=== PATIENT | female | born 1935 | race Caucasian/White ===

== ENCOUNTER 2020-03-07 15:20 | Inpatient (IN) | payer MEDICARE ==
[2020-03-07] MEDS ORDERED: CORDARONE200 MG/TAB PO (15:34)
[2020-03-07] MEDS ORDERED: LOVASTATIN40 M1 PO (15:34)
[2020-03-07] MEDS ORDERED: TOPCARE ASPIRIN81 M1 PO (15:35)
[2020-03-07] MEDS ORDERED: PROAIR HFA0.09 MG/AC IH (15:35)
[2020-03-07] MEDS ORDERED: DECADRON6 M1 PO (15:37)
[2020-03-07 16:31] VITALS: BP 133/80
[2020-03-08 06:13] VITALS: BP 145/69
[2020-03-08 06:21] LABS: HEMATOCRIT 48.5 % (37.0-47.0); HEMOGLOBIN 14.8 g/dL (12.5-16.0); MEAN CELL VOLUME 80 fl (78-100); MEAN CORPUSCULAR HEMOGLOBIN 25 pg (27-31); MEAN CORPUSCULAR HGB CONC 31 g/dL (33-37); MEAN PLATELET VOLUME 10.3 fl (7.4-10.4); PLATELET COUNT 313 K/mm3 (130-400); RED BLOOD COUNT 6.04 M/mm3 (4.10-5.30)
[2020-03-08 06:24] LABS: ALBUMIN 2.7 g/dL (3.4-4.8); POTASSIUM 5.4 mmol/L (3.5-5.1)
[2020-03-08 06:25] LABS: CALCIUM 8.2 mg/dL (8.3-10.5)
[2020-03-08 06:26] LABS: TOTAL PROTEIN 5.4 g/dL (6.2-8.1)
[2020-03-08 06:28] LABS: TOTAL BILIRUBIN 0.8 mg/dL (0.2-1.2)
[2020-03-08 07:02] LABS: LYMPHOCYTE 5 % (20-51); MONOCYTE 8 % (3-10); NEUTROPHILS 87 % (42-75)
[2020-03-08 07:04] LABS: HYPOCHROMIA 1+; OVALOCYTES 1+; TARGET CELLS 1+
[2020-03-08 09:22] LABS: PH-URINE 7.5 (5.0 - 8.0); URINE APPEARANCE CLEAR; URINE BILIRUBIN NEGATIVE (NEGATIVE); URINE BLOOD NEGATIVE (NEGATIVE); URINE COLOR YELLOW; URINE GLUCOSE NEGATIVE (NEGATIVE); URINE KETONE NEGATIVE (NEGATIVE); URINE LEUKOCYTE ESTERASE NEGATIVE (NEGATIVE); URINE NITRATE NEGATIVE (NEGATIVE); URINE PROTEIN(semi-quant) TRACE mg/dL (NEGATIVE); URINE UROBILINOGEN NORMAL (NORMAL)
[2020-03-08 17:32] VITALS: BP 121/64
[2020-03-09 05:32] VITALS: BP 168/85
[2020-03-09 18:20] VITALS: BP 111/56
[2020-03-10 06:04] VITALS: BP 116/70
[2020-03-10 17:15] VITALS: BP 106/58
[2020-03-11 06:03] VITALS: BP 130/56
[2020-03-11 17:52] VITALS: BP 130/64
[2020-03-12 06:06] VITALS: BP 158/73
[2020-03-12 17:12] VITALS: BP 155/74
[2020-03-13 06:18] VITALS: BP 163/82
[2020-03-13 17:13] VITALS: BP 114/59
[2020-03-14 05:51] VITALS: BP 111/52
[2020-03-14 06:52] LABS: HEMOGLOBIN 12.5 g/dL (12.5-16.0); MEAN CELL VOLUME 84 fl (78-100); MEAN PLATELET VOLUME 10.7 fl (7.4-10.4); PLATELET COUNT 228 K/mm3 (130-400); RED BLOOD COUNT 5.14 M/mm3 (4.10-5.30)
[2020-03-14 07:17] LABS: MEAN CORPUSCULAR HEMOGLOBIN 24 pg (27-31); MEAN CORPUSCULAR HGB CONC 29 g/dL (33-37); RED CELL DISTRIBUTION WIDTH 20.8 % (11.5-14.5)
[2020-03-14 07:18] LABS: HYPOCHROMIA 1+; LYMPHOCYTE 10 % (20-51); MONOCYTE 8 % (3-10); NEUTROPHILS 81 % (42-75); OVALOCYTES 2+; TARGET CELLS 1+
[2020-03-14 07:20] LABS: ALBUMIN 2.5 g/dL (3.4-4.8)
[2020-03-14 07:21] LABS: CALCIUM 8.1 mg/dL (8.3-10.5)
[2020-03-14 07:23] LABS: POTASSIUM 5.8 mmol/L (3.5-5.1)
[2020-03-14 07:24] LABS: TOTAL BILIRUBIN 0.6 mg/dL (0.2-1.2)
[2020-03-14 08:25] LABS: POTASSIUM 5.1 mmol/L (3.5-5.1)
[2020-03-14 08:27] LABS: CALCIUM 8.2 mg/dL (8.3-10.5)
[2020-03-14 17:24] VITALS: BP 131/69
[2020-03-15 06:45] VITALS: BP 131/60
[2020-03-15 17:19] VITALS: BP 122/54
[2020-03-16 06:14] VITALS: BP 150/72
[2020-03-16 17:26] VITALS: BP 107/64
[2020-03-17 06:09] VITALS: BP 128/67
[2020-03-17 16:35] VITALS: BP 120/69
[2020-03-18 06:10] VITALS: BP 134/67
[2020-03-18 16:25] VITALS: BP 131/79
[2020-03-19 06:09] VITALS: BP 155/73
[2020-03-19 17:21] VITALS: BP 145/72
[2020-03-20 06:17] VITALS: BP 158/76
[2020-03-20 16:38] VITALS: BP 131/62
[2020-03-21 06:05] VITALS: BP 135/63
[2020-03-21 07:20] LABS: ALBUMIN 2.5 g/dL (3.4-4.8); EOS # 0.1 (0.04-0.40); EOS % 2.4 % (1.0-5.0); HEMATOCRIT 38.8 % (37.0-47.0); HEMOGLOBIN 11.1 g/dL (12.5-16.0); MEAN CELL VOLUME 84 fl (78-100); MEAN PLATELET VOLUME 9.3 fl (7.4-10.4); MONO # 0.5 (0.20-0.80); NEU # 3.7 (1.40-6.50); PLATELET COUNT 151 K/mm3 (130-400); RED BLOOD COUNT 4.63 M/mm3 (4.10-5.30); WHITE BLOOD COUNT 5.1 K/mm3 (4.8-10.8)
[2020-03-21 07:21] LABS: POTASSIUM 4.5 mmol/L (3.5-5.1)
[2020-03-21 07:22] LABS: CALCIUM 8.1 mg/dL (8.3-10.5)
[2020-03-21 07:23] LABS: TOTAL PROTEIN 5.3 g/dL (6.2-8.1)
[2020-03-21 07:25] LABS: TOTAL BILIRUBIN 0.5 mg/dL (0.2-1.2)
[2020-03-21 07:54] LABS: LYMPH# 0.7 (1.50-4.00); MEAN CORPUSCULAR HEMOGLOBIN 24 pg (27-31); MEAN CORPUSCULAR HGB CONC 29 g/dL (33-37)
[2020-03-21 15:47] VITALS: BP 155/73
[2020-03-22 05:53] VITALS: BP 161/71
[2020-03-22 17:00] VITALS: BP 148/66
[2020-03-23 06:01] VITALS: BP 171/68
[2020-03-23 17:08] VITALS: BP 151/60
[2020-03-24 05:18] VITALS: BP 174/76
[2020-03-24 18:01] VITALS: BP 155/78
[2020-03-25 05:57] VITALS: BP 164/68
[2020-03-25 17:21] VITALS: BP 133/72
[2020-03-26 05:30] VITALS: BP 108/71
[2020-03-26 18:34] VITALS: BP 148/75
[2020-03-27 06:27] VITALS: BP 172/72
[2020-03-27 16:51] VITALS: BP 124/74
[2020-03-28 06:40] VITALS: BP 136/59
[2020-03-28 07:40] LABS: HEMATOCRIT 40.4 % (37.0-47.0); HEMOGLOBIN 11.5 g/dL (12.5-16.0); MEAN CELL VOLUME 85 fl (78-100); MEAN PLATELET VOLUME 9.1 fl (7.4-10.4); PLATELET COUNT 286 K/mm3 (130-400); RED BLOOD COUNT 4.73 M/mm3 (4.10-5.30); WHITE BLOOD COUNT 3.9 K/mm3 (4.8-10.8)
[2020-03-28 07:44] LABS: ALBUMIN 2.7 g/dL (3.4-4.8); POTASSIUM 4.7 mmol/L (3.5-5.1)
[2020-03-28 07:45] LABS: CALCIUM 8.4 mg/dL (8.3-10.5)
[2020-03-28 07:47] LABS: TOTAL PROTEIN 5.5 g/dL (6.2-8.1)
[2020-03-28 07:48] LABS: TOTAL BILIRUBIN 0.4 mg/dL (0.2-1.2)
[2020-03-28 08:00] LABS: MEAN CORPUSCULAR HEMOGLOBIN 24 pg (27-31); MEAN CORPUSCULAR HGB CONC 29 g/dL (33-37); RED CELL DISTRIBUTION WIDTH 21.6 % (11.5-14.5)
[2020-03-28 08:17] LABS: LYMPHOCYTE 23 % (20-51); MICROCYTOSIS 1+; MONOCYTE 7 % (3-10); NEUTROPHILS 63 % (42-75); OVALOCYTES 1+
[2020-03-28 17:20] VITALS: BP 147/65
[2020-03-29 05:41] VITALS: BP 107/69
[2020-03-29 17:37] VITALS: BP 137/73
[2020-03-30 05:55] VITALS: BP 147/64
[2020-03-30 17:07] VITALS: BP 149/75
[2020-03-31 06:23] VITALS: BP 168/82
[2020-03-31] MEDS ORDERED: LOVASTATIN40 M1 PO (09:58)
[2020-03-31] MEDS ORDERED: CORDARONE200 MG/TAB PO (09:58)
[2020-03-31] MEDS ORDERED: PROAIR HFA0.09 MG/AC IH (09:58)
[2020-03-31] MEDS ORDERED: ACETAMINOPHEN325 M1 PO (09:59)
[2020-03-31] MEDS ORDERED: DULCOLAX PO (09:59)
[2020-03-31] MEDS ORDERED: DOCUSATE SOD100 MG PO (09:59)
[2020-03-31] MEDS ORDERED: TOPCARE ASPIRIN81 M1 PO (09:59)
[2020-03-31] MEDS ORDERED: NYSTATIN15 G1 TP (10:00)
[2020-03-31] MEDS ORDERED: PROTONIX20 M1 PO (10:01)
[2020-03-31] MEDS ORDERED: VENELEX OINTMEN60 GM TP (10:01)
[2020-03-31 11:21] VITALS: BP 168/82
== END 2020-03-31 11:40 | DRG 178 ==
LOC: MED/SURG 15:20
PROVIDERS: Internal Medicine; Nurse Practitioner; ADMIT Physician Assistant
DX: U07.1 COVID-19 (principal); I13.0 Hypertensive heart and chronic kidney disease with heart failure and stage 1 through stage 4 chronic kidney disease, or unspecified chronic kidney disease; N39.0 Urinary tract infection, site not specified; I50.9 Heart failure, unspecified; N18.9 Chronic kidney disease, unspecified; I48.91 Unspecified atrial fibrillation; L89.159 Pressure ulcer of sacral region, unspecified stage; F03.90 Unspecified dementia, unspecified severity, without behavioral disturbance, psychotic disturbance, mood disturbance, and anxiety; N32.81 Overactive bladder; R13.10 Dysphagia, unspecified; M79.7 Fibromyalgia; R53.81 Other malaise; B96.20 Unspecified Escherichia coli [E. coli] as the cause of diseases classified elsewhere; Z79.82 Long term (current) use of aspirin; Z88.0 Allergy status to penicillin; Z86.73 Personal history of transient ischemic attack (TIA), and cerebral infarction without residual deficits; Z88.5 Allergy status to narcotic agent
CPT/HCPCS: J1650

== ENCOUNTER → 2020-04-20 | Outpatient (CLI) | payer OTHER ==
[2020-03-31 11:21] VITALS: BP 168/82
[~2020-04-20] MED LIST: ACETAMINOPHEN325 M1 PO; CEPHALEXIN250 MG PO; CORDARONE200 MG/TAB PO; DECADRON6 M1 PO; DOCUSATE SOD100 MG PO; DULCOLAX PO; DULCOLAX S10 MG/SUPP RC; FLEET ENEM1 BOT/133 RC; GOOD SENSE400 MG/5 M PO; LOVASTATIN40 M1 PO; NORCO 325 MG-51 TA1 PO; NYSTATIN15 G1 TP; PEPCID 20MG TAB20 MG PO; PROAIR HFA0.09 MG/AC IH; PROTONIX20 M1 PO; TOPCARE ASPIRIN81 M1 PO; TRAMADOL 50 MG TAB PO; TYLENOL PM EXTR1 TA1 PO; TYLENOL325 M1 PO; VENELEX OINTMEN60 GM TP; ZOLOFT 50MG50 MG PO
== END ==
LOC: RAD 11:34
DX: M51.36 Other intervertebral disc degeneration, lumbar region (principal); M16.11 Unilateral primary osteoarthritis, right hip; M89.38 Hypertrophy of bone, other site; W19.XXXA Unspecified fall, initial encounter

== ENCOUNTER 2020-04-29 16:07 | Emergency (ER) | payer MEDICARE, MEDICAID ==
[~2020-04-29 16:07] MED LIST changes: -CEPHALEXIN250 MG PO; -DULCOLAX S10 MG/SUPP RC; -FLEET ENEM1 BOT/133 RC; -GOOD SENSE400 MG/5 M PO; -NORCO 325 MG-51 TA1 PO; -PEPCID 20MG TAB20 MG PO; -TRAMADOL 50 MG TAB PO; -TYLENOL PM EXTR1 TA1 PO; -TYLENOL325 M1 PO; -ZOLOFT 50MG50 MG PO
[2020-04-29] MEDS ORDERED: ZOLOFT 50MG50 MG PO (16:17)
[2020-04-29 17:23] LABS: EOS # 0.2 (0.04-0.40); EOS % 2.3 % (1.0-5.0); HEMATOCRIT 39.1 % (37.0-47.0); HEMOGLOBIN 11.6 g/dL (12.5-16.0); LYMPH# 1.4 (1.50-4.00); MEAN CELL VOLUME 88 fl (78-100); MEAN CORPUSCULAR HEMOGLOBIN 26 pg (27-31); MEAN CORPUSCULAR HGB CONC 30 g/dL (33-37); MEAN PLATELET VOLUME 9.5 fl (7.4-10.4); MONO # 0.7 (0.20-0.80); NEU # 4.5 (1.40-6.50); PLATELET COUNT 252 K/mm3 (130-400); RED BLOOD COUNT 4.45 M/mm3 (4.10-5.30); WHITE BLOOD COUNT 6.9 K/mm3 (4.8-10.8)
[2020-04-29 17:30] LABS: RED CELL DISTRIBUTION WIDTH 20.5 % (11.5-14.5)
[2020-04-29 17:34] LABS: POTASSIUM 4.5 mmol/L (3.5-5.1)
[2020-04-29 17:35] LABS: CALCIUM 8.4 mg/dL (8.3-10.5)
[2020-04-29 17:36] LABS: TOTAL PROTEIN 5.8 g/dL (6.2-8.1)
[2020-04-29 17:36] LABS: PH-URINE 6.5 (5.0 - 8.0); URINE APPEARANCE CLEAR; URINE BILIRUBIN NEGATIVE (NEGATIVE); URINE COLOR YELLOW; URINE GLUCOSE NEGATIVE (NEGATIVE); URINE KETONE NEGATIVE (NEGATIVE); URINE PROTEIN(semi-quant) TRACE mg/dL (NEGATIVE); URINE UROBILINOGEN NORMAL (NORMAL)
[2020-04-29 17:37] LABS: URINE BLOOD 250 ery/uL (NEGATIVE); URINE LEUKOCYTE ESTERASE 1+ (NEGATIVE); URINE NITRATE NEGATIVE (NEGATIVE)
[2020-04-29 17:38] LABS: TOTAL BILIRUBIN 0.3 mg/dL (0.2-1.2)
[2020-04-29 17:51] LABS: PROTHROMBIN TIME 9.7 SECONDS (9.0-12.0)
[2020-04-29] MEDS ORDERED: NORCO 325 MG-51 TA1 PO (18:28)
[2020-04-29] MEDS ORDERED: CEPHALEXIN250 MG PO (18:31)
[2020-04-29 18:36] VITALS: BP 184/84
== END 2020-04-29 19:10 | disposition home or self-care (01) ==
LOC: ED 16:07
PROVIDERS: Nurse Practitioner
DX: S30.0XXA Contusion of lower back and pelvis, initial encounter (principal); F03.90 Unspecified dementia, unspecified severity, without behavioral disturbance, psychotic disturbance, mood disturbance, and anxiety; N39.0 Urinary tract infection, site not specified; I48.91 Unspecified atrial fibrillation; J44.9 Chronic obstructive pulmonary disease, unspecified; K21.9 Gastro-esophageal reflux disease without esophagitis; I13.0 Hypertensive heart and chronic kidney disease with heart failure and stage 1 through stage 4 chronic kidney disease, or unspecified chronic kidney disease; Z87.891 Personal history of nicotine dependence; Z88.0 Allergy status to penicillin; Z88.6 Allergy status to analgesic agent; Z79.82 Long term (current) use of aspirin; Z86.73 Personal history of transient ischemic attack (TIA), and cerebral infarction without residual deficits; W19.XXXA Unspecified fall, initial encounter; Y92.129 Unspecified place in nursing home as the place of occurrence of the external cause
CPT/HCPCS: Q9967

== ENCOUNTER 2020-05-12 16:00 | Emergency (ER) | payer MEDICARE ==
[~2020-05-12 16:00] MED LIST changes: +CEPHALEXIN250 MG PO; +NORCO 325 MG-51 TA1 PO; +ZOLOFT 50MG50 MG PO
[2020-05-12] MEDS ORDERED: PROTONIX20 M1 PO (16:21)
[2020-05-12] MEDS ORDERED: TRAMADOL 50 MG TAB PO (16:22)
[2020-05-12 18:00] VITALS: BP 126/81
== END 2020-05-12 18:00 | disposition home or self-care (01) ==
LOC: ED 16:00
DX: S80.01XA Contusion of right knee, initial encounter (principal); S69.91XA Unspecified injury of right wrist, hand and finger(s), initial encounter; I48.91 Unspecified atrial fibrillation; J44.9 Chronic obstructive pulmonary disease, unspecified; Z87.891 Personal history of nicotine dependence; Z86.73 Personal history of transient ischemic attack (TIA), and cerebral infarction without residual deficits; Z79.82 Long term (current) use of aspirin; Z79.51 Long term (current) use of inhaled steroids; W18.30XA Fall on same level, unspecified, initial encounter; Y92.838 Other recreation area as the place of occurrence of the external cause

== ENCOUNTER 2020-11-14 20:15 | Emergency (ER) | payer MEDICARE, MEDICAID ==
[~2020-11-14 20:15] MED LIST changes: +TRAMADOL 50 MG TAB PO
[2020-11-14 21:07] LABS: BASO # 0.03 (0.02-0.10); EOS # 0.14 (0.04-0.40); EOS % 1.9 % (1.0-5.0); HEMATOCRIT 38.8 % (37.0-47.0); LYMPH# 1.54 (1.50-4.00); MEAN CELL VOLUME 97 fl (78-100); MEAN CORPUSCULAR HEMOGLOBIN 30 pg (27-31); MEAN CORPUSCULAR HGB CONC 31 g/dL (33-37); MEAN PLATELET VOLUME 9.9 fl (7.4-10.4); MONO # 0.67 (0.20-0.80); NEU # 4.87 (1.40-6.50); PLATELET COUNT 210 K/mm3 (130-400); RED BLOOD COUNT 4.01 M/mm3 (4.10-5.30); RED CELL DISTRIBUTION WIDTH 14.8 % (11.5-14.5); WHITE BLOOD COUNT 7.3 K/mm3 (4.8-10.8)
[2020-11-14 21:10] LABS: ALBUMIN 3.6 g/dL (3.4-4.8)
[2020-11-14 21:11] LABS: CALCIUM 9.1 mg/dL (8.3-10.5)
[2020-11-14 21:12] LABS: TOTAL PROTEIN 6.5 g/dL (6.2-8.1)
[2020-11-14 21:14] LABS: TOTAL BILIRUBIN 0.3 mg/dL (0.2-1.2)
[2020-11-14 21:16] LABS: URINE APPEARANCE CLOUDY; URINE COLOR BLOODY; URINE GLUCOSE NEGATIVE (NEGATIVE); URINE KETONE NEGATIVE (NEGATIVE); URINE PROTEIN(semi-quant) 1+ mg/dL (NEGATIVE)
[2020-11-14 21:17] LABS: URINE BILIRUBIN NEGATIVE (NEGATIVE); URINE BLOOD 250 ery/uL (NEGATIVE); URINE LEUKOCYTE ESTERASE 2+ (NEGATIVE); URINE NITRATE POSITIVE (NEGATIVE); URINE UROBILINOGEN NORMAL (NORMAL)
[2020-11-14] MEDS ORDERED: TYLENOL PM EXTR1 TA1 PO (23:35)
[2020-11-14] MEDS ORDERED: DULCOLAX S10 MG/SUPP RC (23:38)
[2020-11-14] MEDS ORDERED: FLEET ENEM1 BOT/133 RC (23:38)
[2020-11-14] MEDS ORDERED: PEPCID 20MG TAB20 MG PO (23:39)
[2020-11-14] MEDS ORDERED: GOOD SENSE400 MG/5 M PO (23:39)
[2020-11-14] MEDS ORDERED: TYLENOL325 M1 PO (23:40)
[2020-11-14] MEDS ORDERED: VENELEX OINTMEN60 GM TP (23:41)
[2020-11-14 23:43] VITALS: BP 179/78
== END 2020-11-14 23:00 | disposition home or self-care (01) ==
LOC: ED 20:15
PROVIDERS: Nurse Practitioner
DX: N93.9 Abnormal uterine and vaginal bleeding, unspecified (principal); I13.2 Hypertensive heart and chronic kidney disease with heart failure and with stage 5 chronic kidney disease, or end stage renal disease; N18.6 End stage renal disease; I50.9 Heart failure, unspecified; F03.90 Unspecified dementia, unspecified severity, without behavioral disturbance, psychotic disturbance, mood disturbance, and anxiety; K21.9 Gastro-esophageal reflux disease without esophagitis; J44.9 Chronic obstructive pulmonary disease, unspecified; Z79.899 Other long term (current) drug therapy; W01.0XXA Fall on same level from slipping, tripping and stumbling without subsequent striking against object, initial encounter; Y92.129 Unspecified place in nursing home as the place of occurrence of the external cause
CPT/HCPCS: Q9967

== ENCOUNTER → 2020-11-23 | Outpatient (CLI) | payer MEDICARE, MEDICAID ==
[~2020-11-23] MED LIST changes: +DULCOLAX S10 MG/SUPP RC; +FLEET ENEM1 BOT/133 RC; +GOOD SENSE400 MG/5 M PO; +PEPCID 20MG TAB20 MG PO; +TYLENOL PM EXTR1 TA1 PO; +TYLENOL325 M1 PO
== END ==
LOC: RAD 11-21 14:00
DX: I10 Essential (primary) hypertension (principal); I48.0 Paroxysmal atrial fibrillation; K59.00 Constipation, unspecified; E78.5 Hyperlipidemia, unspecified; L89.312 Pressure ulcer of right buttock, stage 2; K21.9 Gastro-esophageal reflux disease without esophagitis; M79.7 Fibromyalgia; N32.81 Overactive bladder; J44.0 Chronic obstructive pulmonary disease with (acute) lower respiratory infection; F41.1 Generalized anxiety disorder; N93.9 Abnormal uterine and vaginal bleeding, unspecified

== ENCOUNTER → 2020-12-10 | Outpatient (CLI) | payer MEDICARE, MEDICAID ==
[2020-12-10 08:35] LABS: URINE APPEARANCE CLOUDY; URINE COLOR YELLOW
[2020-12-10 08:36] LABS: PH-URINE 6.5 (5.0 - 8.0); URINE BILIRUBIN NEGATIVE (NEGATIVE); URINE BLOOD TRACE (NEGATIVE); URINE GLUCOSE NEGATIVE (NEGATIVE); URINE KETONE NEGATIVE (NEGATIVE); URINE LEUKOCYTE ESTERASE 2+ (NEGATIVE); URINE NITRATE POSITIVE (NEGATIVE); URINE PROTEIN(semi-quant) TRACE mg/dL (NEGATIVE); URINE UROBILINOGEN NORMAL (NORMAL); URINE WBC >50 /hpf (0-3)
== END ==
LOC: LAB 07:28
PROVIDERS: Family Medicine
DX: N39.0 Urinary tract infection, site not specified (principal)

== ENCOUNTER → 2021-01-10 | Outpatient (CLI) | payer MEDICARE, MEDICAID ==
[2021-01-10 14:41] LABS: URINE APPEARANCE HAZY; URINE BILIRUBIN NEGATIVE (NEGATIVE); URINE BLOOD TRACE (NEGATIVE); URINE COLOR YELLOW; URINE GLUCOSE NEGATIVE (NEGATIVE); URINE KETONE NEGATIVE (NEGATIVE); URINE LEUKOCYTE ESTERASE 1+ (NEGATIVE); URINE NITRATE NEGATIVE (NEGATIVE); URINE PROTEIN(semi-quant) 1+ mg/dL (NEGATIVE); URINE UROBILINOGEN NORMAL (NORMAL)
[2021-01-10 14:42] LABS: URINE MUCUS PRESENT (NOT PRESENT)
== END ==
LOC: LAB 13:58
PROVIDERS: Family Medicine
DX: R41.0 Disorientation, unspecified (principal); G47.9 Sleep disorder, unspecified

== ENCOUNTER → 2021-03-08 | Outpatient (CLI) | payer MEDICARE, MEDICAID ==
[2021-03-09 01:01] LABS: URINE APPEARANCE HAZY; URINE BILIRUBIN NEGATIVE (NEGATIVE); URINE BLOOD TRACE (NEGATIVE); URINE COLOR YELLOW; URINE GLUCOSE NEGATIVE (NEGATIVE); URINE KETONE NEGATIVE (NEGATIVE); URINE LEUKOCYTE ESTERASE TRACE (NEGATIVE); URINE NITRATE NEGATIVE (NEGATIVE); URINE PROTEIN(semi-quant) 1+ (NEGATIVE); URINE UROBILINOGEN NORMAL (NORMAL)
== END ==
LOC: LAB 22:35
PROVIDERS: Family Medicine
DX: F03.90 Unspecified dementia, unspecified severity, without behavioral disturbance, psychotic disturbance, mood disturbance, and anxiety (principal)

== ENCOUNTER 2021-03-28 16:46 | Emergency (ER) | payer MEDICARE, MEDICAID ==
[2021-03-28 21:04] LABS: BASO # 0.03 K/mm3 (0.02-0.10); EOS # 0.33 K/mm3 (0.04-0.40); EOS % 3.9 % (1.0-5.0); HEMATOCRIT 44.1 % (37.0-47.0); HEMOGLOBIN 13.6 g/dL (12.5-16.0); LYMPH# 1.71 K/mm3 (1.50-4.00); MEAN CELL VOLUME 96 fl (78-100); MEAN CORPUSCULAR HEMOGLOBIN 29 pg (27-31); MEAN CORPUSCULAR HGB CONC 31 g/dL (33-37); MEAN PLATELET VOLUME 9.7 fl (7.4-10.4); MONO # 0.58 K/mm3 (0.20-0.80); NEU # 5.78 K/mm3 (1.40-6.50); PLATELET COUNT 224 K/mm3 (130-400); RED BLOOD COUNT 4.62 M/mm3 (4.10-5.30); RED CELL DISTRIBUTION WIDTH 14.5 % (11.5-14.5); WHITE BLOOD COUNT 8.4 K/mm3 (4.8-10.8)
[2021-03-28 21:15] LABS: POTASSIUM 4.5 mmol/L (3.5-5.1)
[2021-03-28 21:17] LABS: CALCIUM 9.3 mg/dL (8.3-10.5)
[2021-03-28] MEDS ORDERED: PREDNISONE20 MG PO (22:23)
[2021-03-28] MEDS ORDERED: CEFDINIR300 MG PO (22:23)
[2021-03-28] MEDS ORDERED: ALBUTEROL2.5 MG/3 M IH (22:23)
[2021-03-28 22:37] VITALS: BP 162/70
[2021-03-29] MEDS ORDERED: PROTONIX20 M1 PO (00:30)
[2021-03-29] MEDS ORDERED: XANAX0.5 M1 PO (00:31)
== END 2021-03-28 22:37 | disposition home or self-care (01) ==
LOC: ED 16:46
PROVIDERS: Physician Assistant
DX: J40 Bronchitis, not specified as acute or chronic (principal); I48.91 Unspecified atrial fibrillation; I12.9 Hypertensive chronic kidney disease with stage 1 through stage 4 chronic kidney disease, or unspecified chronic kidney disease; N18.9 Chronic kidney disease, unspecified; F03.90 Unspecified dementia, unspecified severity, without behavioral disturbance, psychotic disturbance, mood disturbance, and anxiety; E78.5 Hyperlipidemia, unspecified; F41.1 Generalized anxiety disorder; J44.9 Chronic obstructive pulmonary disease, unspecified; Z20.822 Contact with and (suspected) exposure to COVID-19; Z86.73 Personal history of transient ischemic attack (TIA), and cerebral infarction without residual deficits; Z79.899 Other long term (current) drug therapy; Z79.82 Long term (current) use of aspirin

== ENCOUNTER → 2021-06-01 | Outpatient (CLI) | payer MEDICARE, MEDICAID ==
[~2021-06-01] MED LIST changes: +ALBUTEROL2.5 MG/3 M IH; +CEFDINIR300 MG PO; +PREDNISONE20 MG PO; +XANAX0.5 M1 PO
== END ==
LOC: LAB 06:45
DX: R30.9 Painful micturition, unspecified (principal)

== ENCOUNTER → 2021-10-08 | Outpatient (CLI) | payer MEDICARE, MEDICAID ==
[2021-10-08 20:30] LABS: HEMATOCRIT 42.6 % (37.0-47.0); HEMOGLOBIN 12.6 g/dL (12.5-16.0); MEAN PLATELET VOLUME 10.9 fl (7.4-10.4); RED BLOOD COUNT 4.41 M/mm3 (4.10-5.30); WHITE BLOOD COUNT 7.7 K/mm3 (4.8-10.8)
== END ==
LOC: LAB 11:55
PROVIDERS: Family Medicine
DX: I10 Essential (primary) hypertension (principal)

== ENCOUNTER → 2021-10-10 | Outpatient (CLI) | payer MEDICARE, MEDICAID ==
[2021-10-10 23:59] LABS: ALBUMIN 3.4 g/dL (3.4-4.8)
[2021-10-11] LABS: POTASSIUM 5.2 mmol/L (3.5-5.1)
[2021-10-11 00:01] LABS: CALCIUM 8.7 mg/dL (8.3-10.5)
[2021-10-11 00:02] LABS: TOTAL PROTEIN 5.9 g/dL (6.2-8.1)
[2021-10-11 00:04] LABS: TOTAL BILIRUBIN 0.3 mg/dL (0.2-1.2)
== END ==
LOC: LAB 23:35
PROVIDERS: Family Medicine
DX: I10 Essential (primary) hypertension (principal)

== ENCOUNTER → 2021-10-19 | Outpatient (CLI) | payer MEDICARE, MEDICAID ==
[2021-10-19 10:34] LABS: PH-URINE 7.5 (5.0 - 8.0); URINE APPEARANCE HAZY; URINE COLOR LIGHT YELLOW; URINE GLUCOSE NEGATIVE (NEGATIVE); URINE KETONE NEGATIVE (NEGATIVE); URINE PROTEIN(semi-quant) NEGATIVE (NEGATIVE)
[2021-10-19 10:35] LABS: URINE BILIRUBIN NEGATIVE (NEGATIVE); URINE BLOOD NEGATIVE (NEGATIVE); URINE LEUKOCYTE ESTERASE TRACE (NEGATIVE); URINE NITRATE POSITIVE (NEGATIVE); URINE UROBILINOGEN NORMAL (NORMAL)
== END ==
LOC: LAB 10:01
DX: Z01.89 Encounter for other specified special examinations (principal)

== ENCOUNTER → 2021-10-20 | Outpatient (CLI) | payer MEDICARE, MEDICAID ==
[2021-10-20 13:47] LABS: ALBUMIN 3.6 g/dL (3.4-4.8)
[2021-10-20 13:49] LABS: TOTAL PROTEIN 6.6 g/dL (6.2-8.1)
[2021-10-20 13:55] LABS: DIRECT BILIRUBIN 0.2 mg/dL (0.0-0.5)
[2021-10-20 14:27] LABS: TOTAL BILIRUBIN 0.3 mg/dL (0.2-1.2)
== END ==
LOC: LAB 12:57
PROVIDERS: Family Medicine
DX: E78.5 Hyperlipidemia, unspecified (principal)

== ENCOUNTER → 2022-01-25 | Outpatient (CLI) | payer MEDICARE, MEDICAID ==
[2022-01-25 17:35] LABS: BASO # 0.04 K/mm3 (0.02-0.10); EOS # 0.25 K/mm3 (0.04-0.40); HEMATOCRIT 42.8 % (37.0-47.0); HEMOGLOBIN 12.7 g/dL (12.5-16.0); LYMPH# 1.84 K/mm3 (1.50-4.00); MEAN CELL VOLUME 96 fl (78-100); MEAN CORPUSCULAR HEMOGLOBIN 28 pg (27-31); MEAN CORPUSCULAR HGB CONC 30 g/dL (33-37); MEAN PLATELET VOLUME 10.6 fl (7.4-10.4); MONO # 0.68 K/mm3 (0.20-0.80); NEU # 5.61 K/mm3 (1.40-6.50); PLATELET COUNT 257 K/mm3 (130-400); RED BLOOD COUNT 4.48 M/mm3 (4.10-5.30); RED CELL DISTRIBUTION WIDTH 15.2 % (11.5-14.5); WHITE BLOOD COUNT 8.4 K/mm3 (4.8-10.8)
[2022-01-25 17:46] LABS: ALBUMIN 3.9 g/dL (3.4-4.8)
[2022-01-25 17:49] LABS: TOTAL PROTEIN 7.1 g/dL (6.2-8.1)
[2022-01-25 17:51] LABS: TOTAL BILIRUBIN 0.3 mg/dL (0.2-1.2)
[2022-01-25 18:03] LABS: URINE APPEARANCE CLOUDY; URINE COLOR YELLOW
[2022-01-25 18:04] LABS: URINE BILIRUBIN 2+ (NEGATIVE); URINE GLUCOSE NEGATIVE (NEGATIVE); URINE KETONE NEGATIVE (NEGATIVE); URINE NITRATE POSITIVE (NEGATIVE); URINE PROTEIN(semi-quant) 1+ (NEGATIVE); URINE UROBILINOGEN NORMAL (NORMAL)
[2022-01-25 18:05] LABS: URINE BLOOD 50 ery/uL (NEGATIVE); URINE LEUKOCYTE ESTERASE 2+ (NEGATIVE)
[2022-01-25 18:06] LABS: URINE WBC >50 /hpf (0-3)
== END ==
LOC: LAB 17:07
PROVIDERS: Nurse Practitioner
DX: I50.23 Acute on chronic systolic (congestive) heart failure (principal); N18.32 Chronic kidney disease, stage 3b

== ENCOUNTER → 2022-04-24 | Outpatient (CLI) | payer OTHER ==
[2022-04-24 09:22] LABS: ALBUMIN 3.6 g/dL (3.4-4.8); POTASSIUM 4.6 mmol/L (3.5-5.1)
[2022-04-24 09:23] LABS: CALCIUM 8.9 mg/dL (8.3-10.5)
[2022-04-24 09:24] LABS: TOTAL PROTEIN 6.4 g/dL (6.2-8.1)
[2022-04-24 09:26] LABS: TOTAL BILIRUBIN 0.3 mg/dL (0.2-1.2)
== END ==
LOC: LAB 08:18 → EDSTATUS 08:33
DX: N18.32 Chronic kidney disease, stage 3b (principal)

== ENCOUNTER → 2023-01-30 | Outpatient (CLI) | payer MEDICARE, MEDICAID ==
[2023-01-30 15:18] LABS: PH-URINE 6.5 (5.0 - 8.0); URINE APPEARANCE CLOUDY; URINE BILIRUBIN NEGATIVE (NEGATIVE); URINE BLOOD TRACE (NEGATIVE); URINE COLOR YELLOW; URINE GLUCOSE NEGATIVE (NEGATIVE); URINE KETONE NEGATIVE (NEGATIVE); URINE NITRATE POSITIVE (NEGATIVE); URINE PROTEIN(semi-quant) NEGATIVE (NEGATIVE)
[2023-01-30 15:19] LABS: URINE LEUKOCYTE ESTERASE 2+ (NEGATIVE)
[2023-01-30 15:20] LABS: URINE WBC >50 /hpf (0-3)
== END ==
LOC: LAB 13:59
PROVIDERS: Nurse Practitioner Family
DX: R30.0 Dysuria (principal); R39.81 Functional urinary incontinence

== ENCOUNTER → 2023-03-23 | Outpatient (CLI) | payer MEDICARE, MEDICAID ==
[2023-03-23 08:10] LABS: HEMATOCRIT 39.2 % (37.0-47.0); HEMOGLOBIN 11.6 g/dL (12.5-16.0); MEAN PLATELET VOLUME 10.5 fl (7.4-10.4); RED BLOOD COUNT 4.07 M/mm3 (4.10-5.30); RED CELL DISTRIBUTION WIDTH 14.6 % (11.5-14.5); WHITE BLOOD COUNT 5.1 K/mm3 (4.8-10.8)
[2023-03-23 08:15] LABS: ALBUMIN 3.6 g/dL (3.4-4.8)
[2023-03-23 08:16] LABS: CALCIUM 9.3 mg/dL (8.3-10.5)
[2023-03-23 08:17] LABS: TOTAL PROTEIN 6.9 g/dL (6.2-8.1)
[2023-03-23 08:19] LABS: TOTAL BILIRUBIN 0.27 mg/dL (0.2-1.2)
== END ==
LOC: LAB 07:56
PROVIDERS: Nurse Practitioner
DX: N18.30 Chronic kidney disease, stage 3 unspecified (principal)